=== PATIENT | male | born 1945 | race Caucasian/White ===

== ENCOUNTER 2020-05-26 07:20 | Day surgery (SDC) | payer MEDICARE ==
[~2020-05-26] VITALS: Ht 175.3 cm; Wt 87.0 kg
--- NOTE | ~2020-05-26 | OR ---
[facility] [address] [place], [place] [address] Draft DATE OF OPERATION: 05/26/2020 SURGEON: Razia Echols MD PREOPERATIVE DIAGNOSIS: Colon screening. POSTOPERATIVE DIAGNOSIS: Polyps x8. PROCEDURES: Total colonoscopy to cecum with cold morcellation polypectomy x2 and cold snare polypectomy x6. ANESTHESIA: Intravenous sedation, fentanyl 100 mcg and Versed 4 mg. INDICATION: This 74-year-old white man is a patient of Dr. Cyrus Corbin. He has never had colonoscopy in the past. He previously was a patient of Dr. Cosby. He has no symptoms of bleeding, diarrhea, or constipation. He has no family history of colon cancer. He was admitted to undergo initial screening colonoscopy. He understands the risks of bleeding, infection, and perforation. FINDINGS: The prep was excellent. Complete colonoscopy was undertaken to the cecum without problem. He had 8 polyps in total, 1 in the mid descending colon, 6 in the sigmoid, and 1 in the low rectum, all were excised with combination of techniques. DESCRIPTION OF PROCEDURE: The patient was brought to the endoscopy suite and placed in lateral decubitus position, given intravenous sedation to the point of slurred speech and nystagmus. Digital rectal examination was normal. There was no evidence of prostate tissue. He has had radiation therapy to the prostate. This was for prostate cancer. An Olympus video colonoscope was passed in the rectum and manipulated throughout the colon, ultimately intubating the cecum. The ileocecal valve was visualized and ileum intubated as well. The scope was withdrawn and examination throughout showed no sign of abnormality into the mid descending colon, where an adenomatous appearing polyp was noted; it was relatively small, maybe 6 to 8 mm at most, it was excised with cold snare technique. The scope was withdrawn and in the sigmoid there were multiple polyps, 6 in total, all excised with PATIENT NAME: RAZIA BERGER OPERATIVE REPORT DATE OF : 45 REPORT #: [id number] PHYSICIAN: RAZIA ECHOLS MD PCP: CYRUS CORBIN MD REPORT IS CONFIDENTIAL AND NOT TO BE RELEASED WITHOUT AUTHORIZATION [facility] [address] [place], [place] [address] Draft cold snare technique and one excised with cold morcellation technique. All were passed for pathology. The scope was further withdrawn in the low rectum was an other small polyp, possibly hyperplastic, it was excised with cold morcellation technique. Retroflexed view showed no other abnormalities. Scope was straightened withdrawn and removed. The patient was taken to the recovery room in good condition. CONCLUDING DIAGNOSES: Polyps x8; 6 in the sigmoid, 1 in the descending colon, and 1 in the rectum. PLAN: Recommend repeat colonoscopy in 1 year. We will review his pathology reports. If he has symptoms in the meantime to include bleeding, diarrhea, constipation, would consider colonoscopy sooner. MD CLARIBEL Harris/KARIS /[id number] cc: Cyrus Corbin MD Copies: CYRUS CORBIN DMD ~ PATIENT NAME: RAZIA BERGER OPERATIVE REPORT DATE OF : 45 REPORT #: [id number] PHYSICIAN: RAZIA ECHOLS MD PCP: CYRUS CORBIN MD REPORT IS CONFIDENTIAL AND NOT TO BE RELEASED WITHOUT AUTHORIZATION
[~2020-05-26 07:20] MED LIST: ACYCLOVIR200 MG PO; AMLODIPINE-BEN1 EAC3 PO; BUPROPION HCL150 M2 PO; DICLOFENAC SODI75 MG PO; HYDROCHLOROTH12.5 M1 PO; KEFLEX500 MG PO; TAMSULOSIN HCL0.4 MG PO
--- NOTE | 2020-05-26 09:07 | NUR ---
05/26/20 0907 Latrice Mayfield 0856- PT TO PACU IN LL POSITION. RESPONDS TO VOICE. DENIES PAIN. BREATHING EASY AND UNLABORED. SPO2 >95% ON 2L O2 VIA NC. 0904- PT RESTING COMFORTABLY AND AWAKENS EASILY TO VOICE. DENIES PAIN NAUSEA OR DIZZINESS. PT ENCOURAGED TO PASS GAS. VSS. SPO2 TITRATED DOWN TO ROOM AIR. BREATHING EASY AND UNLAOBRED.
--- NOTE | 2020-05-26 14:28 | NUR ---
PT SITTING IN CHAIR IN GOWN WAITING FOR RN TO COME AND START IV. PT IS ALERT, ORIENTED AND HERE FOR HIS FIRST SCOPE. GAVE ENCOURAGEMENT, RN IN TO PREP PT. GAVE BLESSING AND WILL FOLLOW NEEDED
--- NOTE | 2020-05-27 13:58 | PATH ---
[facility] [address] [facility] [place], [place] [address] Signed SPECIMEN(S): A DESCENDING COLON POLYP SPECIMEN(S): B SIGMOID POLYP SPECIMEN(S): C SIGMOID POLYP SPECIMEN(S): D SIGMOID POLYP SPECIMEN(S): E SIGMOID POLYP SPECIMEN(S): F SIGMOID POLYP SPECIMEN(S): G SIGMOID POLYP SPECIMEN(S): H RECTAL POLYP SPECIMEN SOURCE: A. DESCENDING COLON POLYP B. SIGMOID POLYP C. SIGMOID POLYP D. SIGMOID POLYP E. SIGMOID POLYP F. SIGMOID POLYP G. SIGMOID POLYP H. RECTAL POLYP CLINICAL HISTORY: Screening. MICROSCOPIC DESCRIPTION: Histologic sections of all submitted blocks are examined by light microscopy. These findings, together with the gross examination, support the pathologic diagnosis. FINAL PATHOLOGIC DIAGNOSIS: A. Colon, descending, polyp, polypectomy: - Hyperplastic polyp. - Negative for dysplasia or malignancy. B. Colon, sigmoid, polyp, polypectomy: - Hyperplastic polyp. - Negative for dysplasia or malignancy. C. Colon, sigmoid, polyp, polypectomy: - Hyperplastic polyp. - Negative for dysplasia or malignancy. D. Colon, sigmoid, polyp, polypectomy: - Hyperplastic polyp. - Negative for dysplasia or malignancy. E. Colon, sigmoid, polyp, polypectomy: - Hyperplastic polyp. PATIENT NAME: RAZIA BERGER PATHOLOGY DATE OF : 45 REPORT #: [id number] PHYSICIAN: FILI PATHOLOGY PCP: CYRUS CORBIN MD REPORT IS CONFIDENTIAL AND NOT TO BE RELEASED WITHOUT AUTHORIZATION [facility] [address] [place], [place] [address] Signed - Negative for dysplasia or malignancy. F. Colon, sigmoid, polyp, polypectomy: - Hyperplastic polyp. - Negative for dysplasia or malignancy. G. Colon, sigmoid, polyp, polypectomy: - Hyperplastic polyp. - Negative for dysplasia or malignancy. H. Rectum, polyp, polypectomy: - Hyperplastic polyp. - Negative for dysplasia or malignancy. NAL:cml:C2NR GROSS DESCRIPTION: Eight specimens are received in eight containers, labeled "JS." A. The specimen, labeled "JS,1," and designated on the requisition "descending/left polypectomy," is received in formalin and consists of one polypoid barahona soft tissue fragment that measures 0.6 cm in greatest dimension. The specimen is entirely submitted in cassette (A1). B. The specimen, labeled "JS, 2," and designated on the requisition "sigmoid polypectomy," is received in formalin and consists of one polypoid barahona soft tissue fragment that measures 0.7 cm in greatest dimension. The specimen is entirely submitted in cassette (B1). C. The specimen, labeled "JS, 3," and designated on the requisition "sigmoid polypectomy," is received in formalin and consists of one barahona soft tissue fragment that measures 0.6 cm in greatest dimension. The specimen is entirely submitted in cassette (C1). D. The specimen, labeled "JS, 4," and designated on the requisition "sigmoid polypectomy," is received in formalin and consists of 2 pink-barahona soft tissue fragment(s) that measure 0.4 and 0.6 cm in greatest dimension. The specimen is entirely submitted in cassette (D1). E. The specimen, labeled "JS, 5," and designated on the requisition "sigmoid polypectomy," is received in formalin and consists of one polypoid barahona soft tissue fragment that measures 0.5 cm in greatest dimension. The specimen is entirely submitted in cassette (E1). F. The specimen, labeled "JS, 6," and designated on the requisition "sigmoid polypectomy," is received in formalin and consists of one barahona soft tissue fragment that measures 0.4 cm in greatest dimension. The specimen is entirely submitted in cassette (F1). G. The specimen, labeled "JS, 7," and designated on the requisition "sigmoid polyp," is received in formalin and consists of one red freckled, barahona soft tissue fragment that measures 0.7 cm in PATIENT NAME: RAZIA BERGER PATHOLOGY DATE OF : 45 REPORT #: [id number] PHYSICIAN: FILI DEAN PCP: CYRUS CORBIN MD REPORT IS CONFIDENTIAL AND NOT TO BE RELEASED WITHOUT AUTHORIZATION [address] [address] Signed greatest dimension. The specimen is entirely submitted in cassette (G1). H. The specimen, labeled "JS, 8," and designated on the requisition "sigmoid polyp," is received in formalin and consists of 2 barahona soft tissue fragment(s) that measure 0.3 and 0.4 cm in greatest dimension. The specimen is entirely submitted in cassette (H1). AI (under the direct supervision of a pathologist) The Gross Description was prepared using a voice recognition system. The report was reviewed for accuracy; however, sound-alike word errors, addition and/or deletions may occur. If there is any question about this report, please contact Client Services. PERFORMING LABORATORY: The technical component was performed by [facility], [address] [place] [id number] (Bridge Repairer: Columba Fitch MD; CLIA# [id number]). Professional interpretation was performed by [facility], [address] [place] [address] (CLIA# [id number]). Diagnostician: Lauren Larson MD Pathologist Electronically Signed 05/27/2020 Copies: ~ PATIENT NAME: RAZIA BERGER PATHOLOGY DATE OF : 45 REPORT #: [id number] PHYSICIAN: FILI DEAN PCP: CYRUS CORBIN MD REPORT IS CONFIDENTIAL AND NOT TO BE RELEASED WITHOUT AUTHORIZATION
== END 2020-05-26 09:45 | disposition home or self-care (01) ==
LOC: DS 07:20 → OPS 07:20 → DS 08:30 → OPS 08:30
PROVIDERS: ATTEND Surgery
PROC: 0DBE8ZZ Excision of Large Intestine, Via Natural or Artificial Opening Endoscopic (ICD-10-PCS; 2020-05-26)
PROC: 0DBE8ZZ Excision of Large Intestine, Via Natural or Artificial Opening Endoscopic (ICD-10-PCS; principal; 2020-05-26 08:30)
DX: Z12.11 Encounter for screening for malignant neoplasm of colon (principal); K63.5 Polyp of colon; K62.1 Rectal polyp; J45.909 Unspecified asthma, uncomplicated; I10 Essential (primary) hypertension; R39.11 Hesitancy of micturition; E78.5 Hyperlipidemia, unspecified; M25.50 Pain in unspecified joint; Z85.46 Personal history of malignant neoplasm of prostate; Z92.3 Personal history of irradiation
CPT/HCPCS: 99153; G0500; J2250; J3010; J7121

== ENCOUNTER 2024-12-12 07:54 | Emergency (ER) | payer MEDICARE ==
[~2024-12-12] VITALS: Ht 175.3 cm; Wt 83.0 kg
[2024-12-12] MEDS ORDERED: PRAVASTATIN SOD20 MG PO (08:10)
[2024-12-12 09:21] LABS: BLOOD/HGB, URINE LARGE (Negative); KETONE, URINE NEGATIVE (Negative); LEUK ESTERASE, URINE MODERATE (negative); NITRITE, URINE NEGATIVE (negative)
[2024-12-12 09:38] LABS: BACTERIA, URINE 1+ /hpf (negative); CASTS, URINE NONE SEEN \\lpf; CRYSTALS, URINE NONE SEEN (0-1+); EPITHELIAL CELLS, URINE 0 /lpf (0-1+); REFLEX CULTURE, URINE Yes (No)
[2024-12-12] MEDS ORDERED: CIPRO500 MG PO (09:47)
[2024-12-12 09:54] VITALS: BP 140/78
== END 2024-12-12 09:55 | disposition home or self-care (01) ==
LOC: ED 07:54
PROVIDERS: Emergency Medicine
DX: N39.0 Urinary tract infection, site not specified (principal); R31.9 Hematuria, unspecified; R33.9 Retention of urine, unspecified; I10 Essential (primary) hypertension; Z90.79 Acquired absence of other genital organ(s)
CPT/HCPCS: 51798; 81001; 87088; 99283